=== PATIENT | female | born 1970 | race Caucasian/White ===

== ENCOUNTER → 2020-01-29 | Outpatient (CLI) | payer BC | END | disposition home or self-care (01) | LOC: PETCFH 13:47 | PROVIDERS: ATTEND Specialist | DX: C53.9 Malignant neoplasm of cervix uteri, unspecified (principal); R19.09 Other intra-abdominal and pelvic swelling, mass and lump; K57.30 Diverticulosis of large intestine without perforation or abscess without bleeding | CPT/HCPCS: 78815; A9552 ==

== ENCOUNTER → 2020-02-05 | Outpatient (CLI) | payer BC | END | disposition home or self-care (01) | LOC: ROC 07:21 | PROVIDERS: ATTEND Radiology Radiation Oncology | DX: C53.9 Malignant neoplasm of cervix uteri, unspecified (principal) | CPT/HCPCS: 99214; G0463 ==

== ENCOUNTER → 2020-03-09 | Outpatient (CLI) | payer BC ==
[~2020-03-09] MED LIST: IBUP-1221 PO
== END | disposition home or self-care (01) ==
LOC: CFH 15:13
PROVIDERS: ATTEND Specialist
DX: C53.9 Malignant neoplasm of cervix uteri, unspecified (principal); K80.20 Calculus of gallbladder without cholecystitis without obstruction; N13.30 Unspecified hydronephrosis
CPT/HCPCS: 76770

== ENCOUNTER → 2020-03-13 | Outpatient (CLI) | payer BC ==
[~2020-03-13] MED LIST changes: +DEXA1TAB5 PO; +ONDA4TAB7 PO; +OXYC-302 PO; +PERCOCET; +POTA20TA14 PO; +TYLENOL
[2020-03-13 14:39] LABS: BASOPHILS # (AUTO) 0.01 x10^3/uL (0-0.1); BASOPHILS % (AUTO) 0 % (0-1); EOSINOPHILS # (AUTO) 0.16 x10^3/uL (0-0.4); EOSINOPHILS % (AUTO) 4 % (1-7); LYMPHOCYTES # (AUTO) 0.26 x10^3/uL (1-3.4); LYMPHOCYTES % (AUTO) 7 % (22-44); MD NO; MEAN CORPUSCULAR HEMOGLOBIN 28.1 pg (27.0-34.8); MEAN CORPUSCULAR HGB CONC 33.3 g/dL (32.4-35.8); MEAN PLATELET VOLUME 7.3 fL (7.4-10.4); MONOCYTES # (AUTO) 0.33 x10^3/uL (0.2-0.8); MONOCYTES % (AUTO) 9 % (2-9); NEUTROPHILS # (AUTO) 2.96 x10^3/uL (1.8-6.8); NEUTROPHILS % (AUTO) 80 % (42-75); PLATELET COUNT 397 x10^3/uL (130-400); RED BLOOD COUNT 3.27 x10^6/uL (3.82-5.3); RED CELL DISTRIBUTION WIDTH 19.6 % (9.6-15.2)
[2020-03-13 14:49] LABS: INTERNATIONAL NORMALIZED RATIO 0.98 (0.93-1.1); PROTHROMBIN TIME 10.1 Seconds (9.6-11.5)
[2020-03-13 14:50] LABS: CHLORIDE 104 mmol/L (98-107)
[2020-03-13 14:57] LABS: ALANINE AMINOTRANSFERASE 13 U/L (12-78); ALBUMIN 3.2 g/dL (3.4-5.0); ALKALINE PHOSPHATASE 84 U/L (45-117); ANION GAP 8 mmol/L (5-15); BILIRUBIN,TOTAL 0.3 mg/dL (0.2-1.0); CALCIUM 9.5 mg/dL (8.5-10.1); CREATININE 1.46 mg/dL (0.55-1.02); TOTAL PROTEIN 7.9 g/dL (6.4-8.2)
== END | disposition home or self-care (01) ==
LOC: STAR 13:26
PROVIDERS: ATTEND Specialist
DX: Z01.812 Encounter for preprocedural laboratory examination (principal); Z20.828 Contact with and (suspected) exposure to other viral communicable diseases; Z51.11 Encounter for antineoplastic chemotherapy; C53.9 Malignant neoplasm of cervix uteri, unspecified
CPT/HCPCS: 36415; 80053; 85025; 85610; 85730; 86304; 87635

== ENCOUNTER 2020-03-17 06:32 | Day surgery (SDC) | payer BC ==
[~2020-03-17] VITALS: Ht 154.9 cm; Wt 65.2 kg
[2020-03-17] MEDS ORDERED: CHLORHEXIDINE 15 ML UDC MM STA (06:47)
[2020-03-17] MEDS ORDERED: LACTATED RINGERS 1,000 ML IV SCH (06:47)
[2020-03-17] MEDS ORDERED: CEFOTETAN PMX 1GM/50ML 50 ML IV STA (07:08)
[2020-03-17 07:11] VITALS: BP 161/98
[2020-03-17] MEDS ORDERED: LIDOCAINE-MPF 1%, 2ML INFIL STA (07:32)
[2020-03-17] MEDS ORDERED: SODIUM CHLORIDE 0.9% 1,000 ML IV SCH (07:32)
[2020-03-17] MEDS ORDERED: LIDOCAINE-MPF 1%, 2ML ONE (07:33)
[2020-03-17] MEDS ORDERED: FENTANYL PF 250 MCG/5ML ONE (07:47)
[2020-03-17] MEDS ORDERED: MIDAZOLAM 1 MG/ML, 2ML ONE (07:47)
[2020-03-17] MEDS ORDERED: PROPOFOL 10 MG/ML, 20ML ONE (07:51)
[2020-03-17] MEDS ORDERED: PHENYLEPHRINE 10 MG/ML ONE (07:51)
[2020-03-17] MEDS ORDERED: DEXAMETHASONE 4 MG/ML, 1ML ONE (07:51)
[2020-03-17] MEDS ORDERED: CEFAZOLIN 1,000 MG ONE (07:51)
[2020-03-17] MEDS ORDERED: ONDANSETRON 2MG/ML, 2ML ONE (07:51)
[2020-03-17] MEDS ORDERED: BUPIVACAINE/PF 0.25% ONE (08:02)
[2020-03-17] MEDS ORDERED: EPINEPHRINE 1 MG/ML, 1ML ONE (08:02)
[2020-03-17] MEDS ORDERED: OXYcodone 5 MG/5 ML ORAL.SOL UDC PO PRN (08:30)
[2020-03-17] MEDS ORDERED: PROMETHAZINE 25 MG/ML, 1ML IVPush PRN (08:30)
[2020-03-17] MEDS ORDERED: ACETAMINOPHEN 325 MG TABLET PO PRN (08:30)
[2020-03-17] MEDS ORDERED: HYDROmorphone 1 MG/ML, 1ML INJ IVPush PRN (08:30)
[2020-03-17] MEDS ORDERED: LABETALOL 5MG/ML, 20ML IV PRN (08:30)
[2020-03-17] MEDS ORDERED: HALOPERIDOL 5 MG/ML IV PRN (08:30)
[2020-03-17] MEDS ORDERED: hydrALAzine 20 MG/ML, 1ML IV PRN (08:30)
[2020-03-17] MEDS ORDERED: morphine SULFATE 10 MG/ML, 1ML IVPush PRN (08:30)
[2020-03-17] MEDS ORDERED: MEPERIDINE/PF 25MG/0.5ML IVPush PRN (08:30)
[2020-03-17] MEDS ORDERED: FENTANYL PF 100 MCG/2ML IV PRN (08:30)
[2020-03-17] MEDS ORDERED: OXYcodone 5 MG/5 ML ORAL.SOL UDC ONE (10:35)
[2020-03-17] MEDS ORDERED: MEPERIDINE/PF 25MG/ML,1ML ONE (10:35)
[2020-03-17] MEDS ORDERED: FENTANYL PF 100 MCG/2ML ONE (10:35)
[2020-03-17] MEDS ORDERED: ACETAMINOPHEN 650 MG/20.3 ML UDC ONE (11:11)
== END 2020-03-17 13:05 | disposition home or self-care (01) ==
LOC: OUT 06:32
PROVIDERS: ATTEND Specialist
DX: C53.9 Malignant neoplasm of cervix uteri, unspecified (principal); N13.30 Unspecified hydronephrosis; N17.9 Acute kidney failure, unspecified; F12.90 Cannabis use, unspecified, uncomplicated; Z79.899 Other long term (current) drug therapy; Z80.8 Family history of malignant neoplasm of other organs or systems
CPT/HCPCS: 36415; 52332; 57155; 74018; 81025; 86850; 86900; 86923; 87086; C1769; C2617; J0690; J1100; J2250; J2370; J2405; J2704; J3010; J3490; J7030; Q3001; J0171

== ENCOUNTER 2020-03-27 08:00 | Outpatient (CLI) | payer BC ==
[2020-03-27] MEDS ORDERED: GADOTERATE 7.5 MMOL/15 ML SYR ONE (09:45)
== END 2020-03-27 23:59 | disposition home or self-care (01) ==
LOC: CFH 08:00
PROVIDERS: ATTEND Radiology Radiation Oncology
DX: C53.9 Malignant neoplasm of cervix uteri, unspecified (principal)
CPT/HCPCS: 72197; A9575

== ENCOUNTER → 2020-05-20 | Outpatient (CLI) | payer BC | END | disposition home or self-care (01) | LOC: ROC 07:56 | PROVIDERS: ATTEND Radiology Radiation Oncology | DX: Z08 Encounter for follow-up examination after completed treatment for malignant neoplasm (principal); Z85.42 Personal history of malignant neoplasm of other parts of uterus; Z79.899 Other long term (current) drug therapy | CPT/HCPCS: 99212; G0463 ==

== ENCOUNTER 2020-08-04 07:09 | Day surgery (SDC) | payer BC ==
[~2020-08-04] VITALS: Ht 154.9 cm; Wt 66.7 kg
[~2020-08-04 07:09] MED LIST changes: +ACET-458 PO; -OXYC-302 PO; +OXYC1TAB14 PO
[2020-08-04 07:41] VITALS: BP 128/84
[2020-08-04] MEDS ORDERED: CEFOTETAN PMX 2GM/50ML 50 ML IVPB ONE (08:00)
[2020-08-04] MEDS ORDERED: CHLORHEXIDINE 15 ML UDC MM ONE (08:00)
[2020-08-04] MEDS ORDERED: LACTATED RINGERS 1,000 ML IV SCH (08:00)
[2020-08-04 08:50] LABS: HCG UR SG 1.019 (1.003-1.030)
[2020-08-04] MEDS ORDERED: MIDAZOLAM 1 MG/ML, 2ML ONE (08:54)
[2020-08-04] MEDS ORDERED: FENTANYL PF 100 MCG/2ML ONE (08:54)
[2020-08-04] MEDS ORDERED: LIDOCAINE-MPF 2% ,5ML ONE (08:55)
[2020-08-04] MEDS ORDERED: PROPOFOL 10 MG/ML, 20ML ONE (08:55)
[2020-08-04] MEDS ORDERED: DEXAMETHASONE 4 MG/ML, 1ML ONE (09:10)
[2020-08-04] MEDS ORDERED: HYDROmorphone 1 MG/ML, 1ML INJ IVPush PRN (10:00)
[2020-08-04] MEDS ORDERED: KETOROLAC 30 MG/1 ML IVPush PRN (10:00)
[2020-08-04] MEDS ORDERED: PROMETHAZINE 25 MG/ML, 1ML IVPush PRN (10:00)
[2020-08-04] MEDS ORDERED: FENTANYL PF 100 MCG/2ML IV PRN (10:00)
[2020-08-04] MEDS ORDERED: OXYcodone 5 MG/5 ML ORAL.SOL UDC PO PRN (10:00)
[2020-08-04] MEDS ORDERED: MEPERIDINE/PF 25MG/0.5ML IVPush PRN (10:00)
[2020-08-04] MEDS ORDERED: ONDANSETRON 2MG/ML, 2ML IVPush PRN (10:00)
[2020-08-04] MEDS ORDERED: HYDROcodone/APAP 7.5-325MG/15ML UDC PO PRN (10:00)
[2020-08-04] MEDS ORDERED: OMNIPAQUE 350 MG/ML, 50 ML BOTTLE IV ONE (11:32)
[2020-08-04] MEDS ORDERED: OMNIPAQUE 350 MG/ML, 50 ML BOTTLE ONE (12:02)
[2020-08-04] MEDS ORDERED: CEFAZOLIN 1,000 MG ONE (16:26)
[2020-08-04] MEDS ORDERED: ONDANSETRON 2MG/ML, 2ML ONE (16:26)
== END 2020-08-04 13:30 | disposition home or self-care (01) ==
LOC: OUT 07:09
PROVIDERS: ATTEND Specialist
DX: T83.122A Displacement of indwelling ureteral stent, initial encounter (principal); Z79.899 Other long term (current) drug therapy; Z85.41 Personal history of malignant neoplasm of cervix uteri; Z92.21 Personal history of antineoplastic chemotherapy; Z80.8 Family history of malignant neoplasm of other organs or systems; Y83.8 Other surgical procedures as the cause of abnormal reaction of the patient, or of later complication, without mention of misadventure at the time of the procedure
CPT/HCPCS: 36415; 52005; 74420; 81025; 86850; 86900; 86923; 87015; 87070; 87102; 87116; 87205; 87206; 87252; C1769; J0690; J1100; J2250; J2405; J2704; J3010; J7120; Q9967; 76000

== ENCOUNTER → 2020-08-21 | Outpatient (CLI) | payer BC ==
[~2020-08-21] MED LIST changes: +FUROSEMIDE 20 MG/2 ML ONE
== END | disposition home or self-care (01) ==
LOC: RAD 10:44
PROVIDERS: ATTEND Nurse Practitioner Acute Care
DX: C53.9 Malignant neoplasm of cervix uteri, unspecified (principal); N13.30 Unspecified hydronephrosis; N17.9 Acute kidney failure, unspecified; R10.2 Pelvic and perineal pain; N95.8 Other specified menopausal and perimenopausal disorders; R30.0 Dysuria; M89.9 Disorder of bone, unspecified; G89.3 Neoplasm related pain (acute) (chronic); Z51.11 Encounter for antineoplastic chemotherapy
CPT/HCPCS: 78708; A9562; J1940

== ENCOUNTER 2020-10-13 12:51 | Outpatient (CLI) | payer BC ==
[~2020-10-13 12:51] MED LIST changes: -FUROSEMIDE 20 MG/2 ML ONE
[2020-10-13] MEDS ORDERED: FUROSEMIDE 20 MG/2 ML ONE (14:27)
== END 2020-10-13 23:59 | disposition home or self-care (01) ==
LOC: RAD 12:51
PROVIDERS: ATTEND Nurse Practitioner Acute Care
DX: N13.30 Unspecified hydronephrosis (principal); N26.1 Atrophy of kidney (terminal); N17.9 Acute kidney failure, unspecified; C53.9 Malignant neoplasm of cervix uteri, unspecified; R10.2 Pelvic and perineal pain; R30.0 Dysuria
CPT/HCPCS: 76770; 78708; A9562; J1940